=== PATIENT | male | born 1970 | race Caucasian/White ===

== ENCOUNTER 2018-12-28 07:22 | Emergency (ER) | payer SELFPAY ==
[~2018-12-28] VITALS: Ht 177.8 cm; Wt 86.2 kg
[~2018-12-28 07:22] MED LIST: ALPR1T PO; CHOLESTEROL MED; CYCL10TA9 PO; FLUO20CA25 PO; HYDR-2889 PO; NAPR-684 PO; PROZAC
--- NOTE | 2018-12-28 07:45 | ED Chest Pain ---
General Chief Complaint: Chest Wall Stated Complaint: CHEST PAIN Nursing Triage Note: ARRIVED VIA AMB TO ROOM 07 WITH COMPLAINTS OF LEFT SIDED CHEST AND UNDERARM PAIN FOR TWO DAYS. PAIN IS REPRODUCABLE. ALSO COMPLAINS OF DENTAL PAIN FROM HAVING A TOOTH PULLED SEVERAL DAYS AGO. Nursing Sepsis Screen: No Definite Risk Source: patient Exam Limitations: no limitations History of Present Illness Date Seen by Provider: Dec 28, 2018 Time Seen by Provider: 07:40 Initial Comments The patient is a 48-year-old white male who presents with a chief complaint of left-sided chest pain. This is been present for 2 days and is mostly constant. There has been no injury. There is no past history of a pain of this sort. There is no radiation. He notes that it is somewhat worse with a deep breath. It is painful to the touch. Timing/Duration: getting worse, 2-3 days Severity/Quality: moderate Location: other (lateral chest along the anterior axillary line) Allergies and Home Medications Allergies Coded Allergies: No Known Drug Allergies (Unverified , 06/08/13) Patient Home Medication List Home Medication List Reviewed: Yes Review of Systems Review of Systems Constitutional: no symptoms reported EENTM: No Symptoms Reported Respiratory: No Symptoms Reported Cardiovascular: See HPI, Chest Pain Gastrointestinal: No Symptoms Reported Genitourinary: No Symptoms Reported Musculoskeletal: no symptoms reported Skin: no symptoms reported Psychiatric/Neurological: No Symptoms Reported Endocrine: No Symptoms Reported Hematologic/Lymphatic: No Symptoms Reported Past Wswkwug-Bbfgne-Zykhxy Hx Patient Social History Alcohol Use: Denies Use Recreational Drug Use: No Smoking Status: Current Someday Smoker Recent Foreign Travel: No Contact w/Someone Who Travel: No Recent Infectious Disease Expo: No Immunizations Up To Date Tetanus Booster (TDap): Unknown Past Medical History Surgeries: No Respiratory: No Cardiac: No Neurological: No Reproductive Disorders: No Genitourinary: No Gastrointestinal: No Musculoskeletal: Yes (CHRONIC TMJ) Chronic Back Pain Endocrine: No Cancer: No Psychosocial: Yes Anxiety, Depression Integumentary: No Blood Disorders: No Physical Exam Vital Signs Vital Signs - First Documented 12/28/18 07:23 Temp 98.0 Pulse 85 Resp 16 B/P (MAP) 151/89 (109) Pulse Ox 99 O2 Delivery Room Air Capillary Refill : Less Than 3 Seconds Height, Weight, BMI Height: 5'10.00" Weight: 190lbs. oz. [id number]; BMI Method:Stated General Appearance: Mild Distress HEENT: PERRL/EOMI, TMs Normal, Normal ENT Inspection, Pharynx Normal Neck: Full Range of Motion Respiratory: Chest Non Tender, Lungs Clear, Normal Breath Sounds, No Accessory Muscle Use, No Respiratory Distress Cardiovascular: Regular Rate, Rhythm, No Edema, No Gallop, No JVD, No Murmur, Normal Peripheral Pulses Gastrointestinal: Normal Bowel Sounds, No Organomegaly, No Pulsatile Mass, Non Tender Extremity: Normal Capillary Refill, Normal Inspection, Normal Range of Motion Neurologic/Psychiatric: Alert, Oriented x3, No Motor/Sensory Deficits, Normal Mood/Affect Lymphatic: No Adenopathy Other comments There is grimacing to moderate pressure of the rib cage along the left anterior axillary line. There is no induration or redness Progress/Results/Core Measures Results/Orders Lab Results Laboratory Tests Test 12/28/18 07:47 Range/Units White Blood Count 7.2 4.3-11.0 10^3/uL Red Blood Count 4.42 4.35-5.85 10^6/uL Hemoglobin 13.4 13.3-17.7 G/DL Hematocrit 39 L 40-54 % Mean Corpuscular Volume 89 80-99 FL Mean Corpuscular Hemoglobin 30 25-34 PG Mean Corpuscular Hemoglobin Concent 34 32-36 G/DL Red Cell Distribution Width 12.7 10.0-14.5 % Platelet Count 384 130-400 10^3/uL Mean Platelet Volume 9.5 7.4-10.4 FL Neutrophils (%) (Auto) 60 42-75 % Lymphocytes (%) (Auto) 30 12-44 % Monocytes (%) (Auto) 8 0-12 % Eosinophils (%) (Auto) 2 0-10 % Basophils (%) (Auto) 0 0-10 % Neutrophils # (Auto) 4.3 1.8-7.8 X 10^3 Lymphocytes # (Auto) 2.2 1.0-4.0 X 10^3 Monocytes # (Auto) 0.6 0.0-1.0 X 10^3 Eosinophils # (Auto) 0.1 0.0-0.3 10^3/uL Basophils # (Auto) 0.0 0.0-0.1 10^3/uL Sodium Level 138 135-145 MMOL/L Potassium Level 3.6 3.6-5.0 MMOL/L Chloride Level 107 98-107 MMOL/L Carbon Dioxide Level 21 21-32 MMOL/L Anion Gap 10 5-14 MMOL/L Blood Urea Nitrogen 7 7-18 MG/DL Creatinine 0.79 0.60-1.30 MG/DL Estimat Glomerular Filtration Rate > 60 BUN/Creatinine Ratio 9 Glucose Level 105 70-105 MG/DL Calcium Level 9.5 8.5-10.1 MG/DL Corrected Calcium 9.4 8.5-10.1 MG/DL Total Bilirubin 0.4 0.1-1.0 MG/DL Aspartate Amino Transf (AST/SGOT) 19 5-34 U/L Alanine Aminotransferase (ALT/SGPT) 17 0-55 U/L Alkaline Phosphatase 105 40-136 U/L Troponin I < 0.028 <0.028 NG/ML Total Protein 7.1 6.4-8.2 GM/DL Albumin 4.1 3.2-4.5 GM/DL My Orders Orders - DEVEN BUSTOS MD Ekg Tracing (12/28/18 07:24) Cbc With Automated Diff (12/28/18 07:39) Comprehensive Metabolic Panel (12/28/18 07:39) Troponin I (12/28/18 07:39) Chest 1 View, Ap/Pa Only (12/28/18 07:39) Ketorolac Injection (Toradol Injection) (12/28/18 09:15) Vital Signs/I&O 12/28/18 07:23 Temp 98.0 Pulse 85 Resp 16 B/P (MAP) 151/89 (109) Pulse Ox 99 O2 Delivery Room Air Blood Pressure Mean: 109 Departure Impression Primary Impression: musculoskeletal chest pain Disposition: 01 HOME, SELF-CARE Condition: Stable/Unchanged Departure-Patient Inst. Decision time for Depature: 09:04 Referrals: BOB COELLO APRN (PCP) Primary Care Physician [facility] (Family) Primary Care Physician Add. Discharge Instructions: All discharge instructions reviewed with patient and/or family. Voiced understandinG Use Tylenol or ibuprofen for pain. You may take up to 800 mg 4 times daily. Expect this to be relieved over a several day course DEVEN BUSTOS MD Dec 28, 2018 07:45
--- NOTE | 2018-12-28 08:09 | NUR ---
LAB CONTACTED DUE TO BLOOD NOT BEING RAN. THEY FOUND BLOOD AND WILL RUN IT.
[2018-12-28 08:14] LABS: BASOPHILS % (AUTO) 0 % (0-10); EOSINOPHILS # (AUTO) 0.1 10^3/uL (0.0-0.3); EOSINOPHILS % (AUTO) 2 % (0-10); HEMATOCRIT 39 % (40-54); HEMOGLOBIN 13.4 G/DL (13.3-17.7); LYMPHOCYTES # (AUTO) 2.2 X 10^3 (1.0-4.0); LYMPHOCYTES % (AUTO) 30 % (12-44); MEAN CORPUSCULAR HEMOGLOBIN 30 PG (25-34); MEAN CORPUSCULAR HGB CONC 34 G/DL (32-36); MEAN CORPUSCULAR VOLUME 89 FL (80-99); MEAN PLATELET VOLUME 9.5 FL (7.4-10.4); MONOCYTES # (AUTO) 0.6 X 10^3 (0.0-1.0); MONOCYTES % (AUTO) 8 % (0-12); NEUTROPHILS # (AUTO) 4.3 X 10^3 (1.8-7.8); NEUTROPHILS % (AUTO) 60 % (42-75); PLATELET COUNT 384 10^3/uL (130-400); RED CELL DISTRIBUTION WIDTH 12.7 % (10.0-14.5); WHITE BLOOD COUNT 7.2 10^3/uL (4.3-11.0)
--- NOTE | 2018-12-28 08:16 | Diagnostic Imaging Report ---
PATIENT HISTORY: Left-sided chest pain and underarm pain. TECHNIQUE: Single frontal view of the chest. COMPARISON: 07/04/2014 FINDINGS: The lung volumes are mildly large. No focal consolidation is seen. No large pleural effusion or pneumothorax is seen. The cardiomediastinal silhouette is normal in size and contour. No acute osseous abnormality is seen. IMPRESSION: Large lung volumes with no acute pulmonary abnormality seen. Dictated by: Dictated on workstation # [id number]
[2018-12-28 08:35] LABS: ALANINE AMINOTRANSFERASE 17 U/L (0-55); ALBUMIN 4.1 GM/DL (3.2-4.5); ALKALINE PHOSPHATASE 105 U/L (40-136); BILIRUBIN,TOTAL 0.4 MG/DL (0.1-1.0); BUN/CREATININE RATIO 9; CALCIUM 9.5 MG/DL (8.5-10.1); CARBON DIOXIDE 21 MMOL/L (21-32); CHLORIDE 107 MMOL/L (98-107); CREATININE SERUM 0.79 MG/DL (0.60-1.30); GFR ESTIMATED > 60; GLUCOSE 105 MG/DL (70-105); POTASSIUM 3.6 MMOL/L (3.6-5.0); SODIUM 138 MMOL/L (135-145); TOTAL PROTEIN 7.1 GM/DL (6.4-8.2)
--- NOTE | 2018-12-28 08:58 | NUR ---
DR BUSTOS IN TO SEE PT.
[2018-12-28] MEDS ORDERED: KETOROLAC 30 MG/ML VIAL IM ONE (09:15)
[2018-12-28 09:28] VITALS: BP 138/94
== END 2018-12-28 09:28 | disposition home or self-care (01) ==
LOC: EDUNIT# 07:22 → ER 07:24
DX: R07.89 Other chest pain (principal); F41.9 Anxiety disorder, unspecified; F32.9 Major depressive disorder, single episode, unspecified; F17.200 Nicotine dependence, unspecified, uncomplicated
CPT/HCPCS: 36415; 71045; 80053; 84484; 85025; 96372

== ENCOUNTER → 2020-02-24 | Outpatient (CLI) | payer SELFPAY ==
--- NOTE | 2020-02-24 14:27 | Diagnostic Imaging Report ---
PROCEDURE: CT chest without contrast. TECHNIQUE: Multiple contiguous axial images were obtained through the chest without the use of intravenous contrast. Auto Exposure Controls were utilized during the CT exam to meet ALARA standards for radiation dose reduction. INDICATION: Cough, smoker, abnormal chest x-ray. COMPARISON: July 04, 2014 and radiograph dated December 28, 2018. FINDINGS: No significant adenopathy within the chest. No aneurysmal dilatation of the thoracic aorta. The heart is within normal limits in size. No pericardial effusion. No pleural effusion. No pneumothorax. The trachea is patent. New 0.3 cm left lower lobe pulmonary nodule, series 3, image 92. New 2.0 x 1.5 cm pulmonary nodule is identified within the left lower lobe inferiorly. 0.2 cm subpleural right upper lobe pulmonary nodule, axial image 34. The lungs are otherwise clear. The trachea is patent. A borderline enlarged 1.1 cm lymph node is noted superior to the gastric cardia, appearing minimally more prominent than the prior exam from 2015. Cholelithiasis. Partially visualized upper abdomen is otherwise unremarkable. No acute osseous normality. IMPRESSION: Interval development of a new 2.0 cm solid left lower lobe pulmonary nodule. Findings are suspicious for malignancy until proven otherwise. Recommend CT-guided biopsy for further evaluation. Interval development of sub-3 mm bilateral pulmonary nodules, which are indeterminant. Developing mild adenopathy superior to the gastric cardia. Given new pulmonary nodules and developing lymph node within the upper abdomen, recommend a CT of the abdomen and pelvis preferably with contrast for further evaluation for potential additional adenopathy or malignancy within the solid organs. Dictated by: Dictated on workstation # [id number]
== END ==
LOC: RAD 12:45
PROVIDERS: ATTEND Nurse Practitioner
DX: R05 Cough (principal); R59.0 Localized enlarged lymph nodes; R91.8 Other nonspecific abnormal finding of lung field; F17.200 Nicotine dependence, unspecified, uncomplicated
CPT/HCPCS: 71250

== ENCOUNTER → 2020-03-18 | Outpatient (CLI) | payer OTHER ==
[~2020-03-18] MED LIST changes: +BARIUM SUSPENSION 2.1% (VANILLA SILQ) 450 ML PO ONE; +HOLD METFORMIN - RECEIVED CONTRAST 20 ML VIAL IV SCH; +IOHEXOL 350 MG/ML 100 ML (OMNIPAQUE 350) VIAL IV ONE; +NS 100 ML (IVPB) BAG IV ONE
--- NOTE | 2020-03-18 10:33 | Diagnostic Imaging Report ---
EXAMINATION: CT Abdomen and Pelvis with intravenous contrast. TECHNIQUE: Multiple contiguous axial images were obtained through the abdomen and pelvis after the uneventful administration of intravenous contrast. All CT scans use one or more of the following dose optimizing techniques: automated exposure control, MA and/or KvP adjustment based on a patient size and exam type, or iterative reconstruction. HISTORY: Pulmonary nodule followup and lymphadenopathy. COMPARISON: CT chest 02/24/2020 FINDINGS: Lung bases: There is a stable 1.7 cm left lower lobe pulmonary nodule (series 2 image 14). Lung bases are otherwise clear. Solid organs: The liver is normal without focal lesion. Filling defect within the gallbladder is poorly evaluated. There is no biliary ductal dilation. Pancreas is normal. Spleen is normal. Adrenal glands are normal. The kidneys are normal without hydronephrosis. Bowel: The stomach and small bowel are normal without obstruction. The colon and appendix are normal. Peritoneum: There is no intraperitoneal free fluid or free air. No suspicious lymphadenopathy. Vasculature: Calcification of the aorta without aneurysm. Musculoskeletal: Age-indeterminate compression deformity of the L2 vertebral body. No other suspicious osseous lesion. Surgical changes of the right femur. Pelvis: The prostate gland is normal. The urinary bladder is normal. IMPRESSION: 1. No acute abnormality in the abdomen or pelvis. 2. Age-indeterminate compression deformity of the L2 vertebral body which is new from 07/04/2014. 3. Stable 1.7 cm left lower lobe pulmonary nodule. 4. Ill-defined filling defect within the gallbladder is poorly evaluated on this exam. Recommend dedicated gallbladder ultrasound. Dictated by: Dictated on workstation # [id number]
== END ==
LOC: RAD 09:35
PROVIDERS: ATTEND Nurse Practitioner
DX: R91.1 Solitary pulmonary nodule (principal); M43.8X6 Other specified deforming dorsopathies, lumbar region; R59.1 Generalized enlarged lymph nodes
CPT/HCPCS: 74177

== ENCOUNTER → 2020-03-18 | Outpatient (CLI) | payer OTHER ==
[~2020-03-18] MED LIST changes: -BARIUM SUSPENSION 2.1% (VANILLA SILQ) 450 ML PO ONE; -HOLD METFORMIN - RECEIVED CONTRAST 20 ML VIAL IV SCH; -IOHEXOL 350 MG/ML 100 ML (OMNIPAQUE 350) VIAL IV ONE; -NS 100 ML (IVPB) BAG IV ONE; +RT-ALBUTEROL SULF 2.5 MG/3 ML PRE-MIX VIAL INH ONE
== END ==
LOC: RT 09:35
PROVIDERS: ATTEND Nurse Practitioner Family
DX: R06.00 Dyspnea, unspecified (principal); F17.210 Nicotine dependence, cigarettes, uncomplicated
CPT/HCPCS: 94060; 94726; 94729

== ENCOUNTER → 2020-03-30 | Outpatient (CLI) | payer OTHER ==
[~2020-03-30] MED LIST changes: -RT-ALBUTEROL SULF 2.5 MG/3 ML PRE-MIX VIAL INH ONE
--- NOTE | 2020-03-30 14:19 | Diagnostic Imaging Report ---
INDICATION: Left lower lobe lung nodule. TECHNIQUE: Serum blood glucose level at the time of injection is 109 mg/dL. Patient was administered 13.9 mCi F-18 FDG intravenously in the right antecubital location and PET imaging was performed from the top of skull to mid thighs. Noncontrast CT was performed for attenuation correction and anatomic correlation. COMPARISON: No prior PET/CT studies are available for comparison. Comparison is made with a recent CT abdomen and pelvis study from 03/18/[address] chest from 02/24/2020. FINDINGS: There is symmetric activity throughout the brain. Physiologic activity within the soft tissues of the neck is noted. No mediastinal or hilar hypermetabolism is identified. Pulmonary parenchyma evaluation again demonstrates the circumscribed pulmonary nodule in the posterior left lower lobe. No FDG uptake of the nodule is identified. There is physiologic uptake of activity within the gastrointestinal and genitourinary tracts of the abdomen and pelvis. No suspicious hypermetabolism is identified. IMPRESSION: Unremarkable PET/CT study. Specifically, the circumscribed nodule in the left lower lobe does not demonstrate FDG avidity. Even so, continued interval follow-up CT chest in six months would be recommended to confirm stability. Dictated by: Dictated on workstation # [id number]
== END ==
LOC: RAD 11:45
PROVIDERS: ATTEND Internal Medicine Critical Care Medicine
DX: R91.1 Solitary pulmonary nodule (principal); R06.00 Dyspnea, unspecified; F17.210 Nicotine dependence, cigarettes, uncomplicated
CPT/HCPCS: 78815; A9552

== ENCOUNTER → 2021-02-15 | Outpatient (CLI) | payer OTHER ==
--- NOTE | 2021-02-15 13:33 | Diagnostic Imaging Report ---
Indication: Left lower lobe pulmonary nodule. Serum blood glucose level at the time of injection is 140 mg/dL. Patient was administered 14.8 mCi F-18 FDG intravenously and a whole body PET imaging was performed. Noncontrast CT was also performed for attenuation correction and anatomic correlation. Comparison is made with prior PET/CT study from 03/30/2020. There is symmetric activity throughout the brain. There is physiologic activity throughout the soft tissues of the neck. No mediastinal or hilar hypermetabolism is identified. No pulmonary parenchymal hypermetabolism is seen. Specifically, previously noted left lower lobe pulmonary nodule shows no FDG avidity. Physiologic activity throughout the abdomen and pelvis is noted. Bilateral lower extremities are unremarkable. IMPRESSION: Continued unremarkable whole-body PET/CT study. No suspicious hypermetabolism is identified. Specifically, left lower lobe pulmonary nodule does not demonstrate FDG avidity. Dictated by: Dictated on workstation # [id number]
== END ==
LOC: RAD 09:45
PROVIDERS: ATTEND Nurse Practitioner
DX: R91.1 Solitary pulmonary nodule (principal)
CPT/HCPCS: 78816; A9552

== ENCOUNTER 2022-02-07 09:44 | Emergency (ER) | payer SELFPAY ==
[~2022-02-07] VITALS: Ht 177.8 cm; Wt 92.9 kg
--- NOTE | 2022-02-07 11:08 | ED Lower Extremity ---
General Chief Complaint: Lower Extremity Stated Complaint: FALL, SWOLLEN RT ANKLE Nursing Triage Note: PT TO FT 1 BY WC WITH CC OF R ANKLE INJURY SINCE TODAY. PT REPORTS FELL OFF LADDER A COUPLE OF WEEKS AGO AND HURT SAME ANKLE. PT STATES TRIPPED AND FELL TODAY REINJURING THE R ANKLE. PT DENIES HITTING HEAD AND LOC. PT A&OX4 Source: patient Exam Limitations: no limitations History of Present Illness Date Seen by Provider: Feb 07, 2022 Time Seen by Provider: 11:00 Initial Comments This is a well-appearing 51-year-old male who presents to the ER via POV with complaints of a right ankle injury. States that he was walking down his driveway and tripped over a board approximately 10 minutes prior to arrival. States that he fell forward onto his right side, did not injure his head or neck. No loss of consciousness. No other injures. Also notes that he got "tangled" in a ladder a couple weeks ago and injured the same ankle. He was not evaluated for injury at that time, but states that he had been able to ambulate on it and reported he was feeling much better until this recent injury. Denies numbness or tingling distal to injury. Pain is worse with ambulation and movement. Better with immobilization. Allergies and Home Medications Allergies Coded Allergies: No Known Drug Allergies (Unverified , 06/08/13) Patient Home Medication List Home Medication List Reviewed: Yes Oxycodone HCl/Acetaminophen (Oxycodone-Acetaminophen 5-325) 5 Mg-325 Mg Tablet, 1 EACH PO Q4H PRN for PAIN-MODERATE Prescribed by: LILY BRITO on 02/07/22 1213 Review of Systems Constitutional: no symptoms reported EENTM: no symptoms reported Musculoskeletal: see HPI Skin: other (bruising of right heel ) Psychiatric/Neurological: No Symptoms Reported Past Jqjvqph-Cfoomc-Ggfwtj Hx Patient Social History Tobacco Use?: Yes Tobacco type used: Cigarettes Smoking Status: Current Everyday Smoker Substance use?: No Alcohol Use?: No Pt feels they are or have been: No Immunizations Up To Date Tetanus Booster (TDap): Unknown Past Medical History Surgeries: No Respiratory: No Cardiac: No Neurological: No Reproductive Disorders: No Genitourinary: No Gastrointestinal: No Musculoskeletal: Yes (CHRONIC TMJ) Chronic Back Pain Endocrine: No Cancer: No Psychosocial: Yes Anxiety, Depression Integumentary: No Blood Disorders: No Physical Exam Vital Signs Vital Signs - First Documented 02/07/22 09:53 Temp 36.7 Pulse 87 Resp 18 B/P (MAP) 151/92 (111) Pulse Ox 97 O2 Delivery Room Air Capillary Refill : Less Than 3 Seconds Height, Weight, BMI Height: 5'10.00" Weight: 190lbs. oz. 86.036776cj; 29.00 BMI Method:Stated General Appearance: WD/WN HEENT: PERRL/EOMI, normal ENT inspection Neck: non-tender, full range of motion, supple, normal inspection Cardiovascular: regular rate, rhythm, no murmur Respiratory: lungs clear, normal breath sounds, no respiratory distress Back: normal inspection, no vertebral tenderness Hips: bilateral hip non-tender, bilateral hip normal inspection, bilateral hip normal range of motion Legs: bilateral leg non-tender, bilateral leg normal inspection, bilateral leg normal range of motion Knees: bilateral knee non-tender, bilateral knee normal inspection, bilateral knee normal range of motion Ankles: left ankle non-tender, left ankle normal inspection, left ankle normal range of motion, left ankle no evidence of injury; right ankle ecchymosis, right ankle pain, right ankle soft tissue tenderness, right ankle swelling Feet: left foot non-tender, left foot normal inspection, left foot normal range of motion; right foot pain Neurologic/Tendon: normal sensation, normal motor functions, normal tendon functions Neurologic/Psychiatric: no motor/sensory deficits, alert, normal mood/affect, oriented x 3 Skin: normal color, warm/dry Progress/Results/Core Measures Results/Orders My Orders Orders - LILY BRITO APRN Oxycodone/Apap 5/325mg Tablet (Percocet (02/07/22 11:30) Medications Given in ED Current Medications Medications Dose Ordered Sig/Ran Route Start Time Stop Time Status Last Admin Dose Admin Oxycodone/ Acetaminophen 1 tab ONCE ONCE PO 02/07/22 11:30 02/07/22 11:31 DC 02/07/22 11:54 1 TAB Vital Signs/I&O 02/07/22 09:53 Temp 36.7 Pulse 87 Resp 18 B/P (MAP) 151/92 (111) Pulse Ox 97 O2 Delivery Room Air Blood Pressure Mean: 111 Progress Progress Note #1: Progress Note Patient examined and in no acute distress. States pain is worse with flexion while obtaining x-ray images. He does have quite a bit of soft tissue swelling and bruising to his right ankle and heel. Progress Note #2: Time: :22 Progress Note Consulted with Dr. Pruitt orthopedic surgeon. Recommend transfer to [facility]. Called , images clouded, transfer pending at this time. Progress Note #3: Time: 11:37 Progress Note [facility] declined due to capacity. Consulted Dr. Rodney with [facility] at this time. Pending return call. Progress Note #4: Time: 11:[address] Oliveira is on-call for Dr. Rodney. Discussed case with Dr. Oliveira at this time with [facility], recommended bulky posterior splint, crutches and he will see patient in office tomorrow. Patient was given a oxycodone for pain management, family to drive him home. Prescription for oxycodone sent to pharmacy of choice. Discharge plan of care reviewed. Crutches instructions reviewed prior to discharge. He is agreeable with plan of care. Diagnostic Imaging Diagonstic Imaging: Xray Comments [facility] [place] NAME: SONIA DIAZ [facility] REC#: [id number] PT STATUS: REG ER : 1970 PHYSICIAN: MCKENNA SYKES MD ADMIT DATE: 02/07/22/ER Draft Date of Exam:02/07/22 FOOT, RIGHT, 3 VIEW CLINICAL INDICATION: Patient with ankle injury today. Patient fell off ladder a couple of weeks ago and hurt same ankle. Patient tripped and fell today reinjuring the right ankle. EXAMS: 1: X-ray of the right foot, 3 views. 2: X-ray right ankle, 3 views. COMPARISON: None. FINDINGS: There is a comminuted distracted fracture involving the posterior aspect of the calcaneus. The fracture is distracted by roughly 1.2 cm. There is no definite fracture extension into the subtalar joint region. There is no other fracture seen on this exam. The forefoot, midfoot, and remainder of the talus are unremarkable. There is soft tissue swelling adjacent to the ankle. IMPRESSION: X-rays of the right foot and right ankle show a comminuted and distracted fracture of the calcaneus. Dictated on workstation # [id number] Dict: 02/07/22 1100 Trans: 02/07/22 1114 [id number] Interpreted by: TAMIKO RAND MD Electronically signed by: Reviewed: Reviewed by Me Departure Impression Primary Impression: Right calcaneal fracture Disposition: 01 HOME, SELF-CARE Condition: Stable Departure-Patient Inst. Decision time for Depature: 12:09 Referrals: [facility] (PCP) Primary Care Physician BOB COELLO APRN (Family) Primary Care Physician Patient Instructions: Heel Fracture (DC) Add. Discharge Instructions: Plan: 1. Do not put any weight on your right foot. Use crutches to ambulate. 2. Do not get splint wet. Keep foot elevated as much as possible to reduce swelling. 3. Take Oxycodone as directed and do not drive while taking. 4. You will follow up with Dr. Oliveira tomorrow 5. Use ice 20 minutes at a time 3-4x a day. 6. Return if you lose sensation in your foot, your toes become blue, cold, or increased pain. 7. Return for any new, concerning, or worsening symptoms. Dr. Oliveira [id number] [facility] [place] [address] All discharge instructions reviewed with patient and/or family. Voiced understanding. Scripts Oxycodone HCl/Acetaminophen (Oxycodone-Acetaminophen 5-325) 5 Mg-325 Mg Tablet 1 EACH PO Q4H PRN for PAIN-MODERATE MDD 6, #15 TAB 0 Refills Prov: LILY BRITO APRN 02/07/22 Copy Copies To 1: [facility]LILY BECK APRN Feb 07, 2022 11:08
--- NOTE | 2022-02-07 11:15 | Diagnostic Imaging Report ---
CLINICAL INDICATION: Patient with ankle injury today. Patient fell off ladder a couple of weeks ago and hurt same ankle. Patient tripped and fell today reinjuring the right ankle. EXAMS: 1: X-ray of the right foot, 3 views. 2: X-ray of the right ankle, 3 views. COMPARISON: None. FINDINGS: There is a comminuted distracted fracture involving the posterior aspect of the calcaneus. The fracture is distracted by roughly 1.2 cm. There is no definite fracture extension into the subtalar joint region. There is no other fracture seen on this exam. The forefoot, midfoot, and remainder of the talus are unremarkable. There is soft tissue swelling adjacent to the ankle. IMPRESSION: X-rays of the right foot and right ankle show a comminuted and distracted fracture of the calcaneus. Dictated by: Dictated on workstation # [id number]
[2022-02-07] MEDS ORDERED: oxyCODONE/APAP 5/325MG (PERCOCET 5) TABLET PO ONE (11:30)
[2022-02-07] MEDS ORDERED: OXYC1TAB11 PO (12:13)
[2022-02-07 12:44] VITALS: BP 150/85
== END 2022-02-07 12:44 | disposition home or self-care (01) ==
LOC: EDUNIT# 09:44 → ER 09:48
DX: S92.001A Unspecified fracture of right calcaneus, initial encounter for closed fracture (principal); F17.210 Nicotine dependence, cigarettes, uncomplicated; Z28.310 Unvaccinated for COVID-19; W01.0XXA Fall on same level from slipping, tripping and stumbling without subsequent striking against object, initial encounter; Y93.01 Activity, walking, marching and hiking; Y92.89 Other specified places as the place of occurrence of the external cause
CPT/HCPCS: 29515; 73610; 73630

== ENCOUNTER 2022-05-16 13:45 | Outpatient (RCR) | payer OTHER ==
[~2022-05-16 13:45] MED LIST changes: +OXYC1TAB11 PO
== END 2022-05-17 | disposition home or self-care (01) ==
PROVIDERS: ATTEND Orthopaedic Surgery Orthopaedic Trauma
DX: S92.001D Unspecified fracture of right calcaneus, subsequent encounter for fracture with routine healing (principal); X58.XXXD Exposure to other specified factors, subsequent encounter

== ENCOUNTER 2022-06-14 14:26 | Outpatient (RCR) | payer OTHER | END 2022-06-17 | disposition home or self-care (01) | PROVIDERS: ATTEND Orthopaedic Surgery Orthopaedic Trauma | DX: S92.001D Unspecified fracture of right calcaneus, subsequent encounter for fracture with routine healing (principal); X58.XXXD Exposure to other specified factors, subsequent encounter ==

== ENCOUNTER 2022-07-13 14:07 | Outpatient (RCR) | payer OTHER | END 2022-07-18 | disposition home or self-care (01) | PROVIDERS: ATTEND Orthopaedic Surgery Orthopaedic Trauma | DX: S92.001D Unspecified fracture of right calcaneus, subsequent encounter for fracture with routine healing (principal); X58.XXXD Exposure to other specified factors, subsequent encounter ==

== ENCOUNTER 2022-07-27 09:36 | Outpatient (RCR) | payer OTHER | END 2022-08-15 | disposition home or self-care (01) | PROVIDERS: ATTEND Orthopaedic Surgery Orthopaedic Trauma | DX: S92.001D Unspecified fracture of right calcaneus, subsequent encounter for fracture with routine healing (principal); X58.XXXD Exposure to other specified factors, subsequent encounter ==